=== PATIENT | male | born 1960 | race African-American/Black ===

== ENCOUNTER 2022-12-26 10:47 | Inpatient (IN) | payer OTHER ==
[2022-12-26 11:02] VITALS: BMI 31.2
[2022-12-26] MEDS ORDERED: hydrOXYzine PAMOATE 25 MG CAPSULE (FP) PO PRN (11:18)
[2022-12-26] MEDS ORDERED: LORazepam 1 MG TABLET PO PRN (11:18)
[2022-12-26] MEDS ORDERED: NALOXONE HCL (KLOXXADO) 8 MG SPRAY NS PRN (11:18)
[2022-12-26] MEDS ORDERED: ACETAMINOPHEN 325 MG TABLET (FP) PO PRN ×2 (11:18)
[2022-12-26] MEDS ORDERED: BISMUTH SUBSALICYLATE 262 MG/15 ML BTL PO PRN (11:18)
[2022-12-26] MEDS ORDERED: LOPERAMIDE HCL 2 MG CAPSULE PO PRN (11:18)
[2022-12-26] MEDS ORDERED: LORazepam 2 MG TABLET PO ONE (11:18)
[2022-12-26] MEDS ORDERED: DICYCLOMINE HCL 10 MG CAPSULE PO PRN (11:18)
[2022-12-26] MEDS ORDERED: NICOTINE 10 MG CARTRIDGE (INHALER) IH PRN (11:18)
[2022-12-26] MEDS ORDERED: POLYETHYLENE GLYCOL (HEALTHYLAX) 3350 17 GM PACKET PO PRN (11:18)
[2022-12-26] MEDS ORDERED: IBUPROFEN 400 MG TABLET (FP) PO PRN (11:18)
[2022-12-26] MEDS ORDERED: BENZOCAINE/MENTHOL (CHLORASEPTIC ) LOZENGE MM PRN (11:18)
[2022-12-26] MEDS ORDERED: MAGNESIUM HYDROX 2400MG/30ML ORAL SUSPENSION 30 ML CUP PO PRN (11:18)
[2022-12-26] MEDS ORDERED: ONDANSETRON *ODT* 4 MG TABLET SL PRN (11:18)
[2022-12-26] MEDS ORDERED: IBUPROFEN 600 MG TABLET (FP) PO PRN (11:18)
[2022-12-26] MEDS ORDERED: MAG HYDROX/AL HYDROX/SIMETH 30 ML UNIT-DOSE CUP PO PRN (11:18)
[2022-12-26] MEDS ORDERED: METHOCARBAMOL 500 MG TABLET PO PRN (11:18)
[2022-12-26] MEDS ORDERED: LORazepam 2 MG TABLET ONE (12:23)
[2022-12-26] MEDS ORDERED: PRENATAL VITAMINS W/ FOLIC ACID TABLET (FP) PO ONE (12:24)
[2022-12-26] MEDS ORDERED: NICOTINE 14 MG/24 HOURS TOPICAL PATCH TD ONE (12:25)
[2022-12-26] MEDS: PRENATAL VITAMINS W/ FOLIC ACID TABLET (FP) PO SCH (12:29)
[2022-12-26] MEDS: NICOTINE 14 MG/24 HOURS TOPICAL PATCH TD SCH (12:31)
[2022-12-26 15:21] LABS: HEMATOCRIT 44.1 % (35.4-49); HEMOGLOBIN 14.6 GM/dL (11.7-16.9); MCH 29.1 pg (25.7-33.7); MCHC 33.1 g/dl (32.0-35.9); MEAN PLT VOLUME 9.5 fl (7.5-11.1); PLATELET COUNT 209 10^3/uL (134-434); RBC 5.01 M/mm3 (4.00-5.60); RDW 14.3 % (11.9-15.9); WHITE BLOOD COUNT 6.4 K/mm3 (4.0-10.0)
[2022-12-26 15:53] LABS: CALCIUM 9.1 mg/dL (8.5-10.1)
[2022-12-26 15:54] LABS: ALBUMIN 3.6 g/dl (3.4-5.0); BLOOD UREA NITROGEN 14.2 mg/dL (7-18)
[2022-12-26 15:57] LABS: CREATININE 1.1 mg/dL (0.55-1.3)
[2022-12-26 15:59] LABS: BILIRUBIN,TOTAL 0.7 mg/dL (0.2-1); TOT PROT 6.6 g/dl (6.4-8.2)
[2022-12-26] MEDS: LORazepam 2 MG TABLET PO SCH ×2 (17:30→22:39)
[2022-12-26] MEDS: MELATONIN 5 MG TABLETS PO SCH (22:39)
[2022-12-26] MEDS: THIAMINE HCL 100 MG TABLET (FP) PO SCH (22:39)
[2022-12-27] MEDS: LORazepam 2 MG TABLET PO SCH ×4 (05:50→22:36)
[2022-12-27] MEDS: PRENATAL VITAMINS W/ FOLIC ACID TABLET (FP) PO SCH (10:30)
[2022-12-27] MEDS: NICOTINE 14 MG/24 HOURS TOPICAL PATCH TD SCH (10:30)
[2022-12-27] MEDS: MELATONIN 5 MG TABLETS PO SCH (22:36)
[2022-12-27] MEDS: THIAMINE HCL 100 MG TABLET (FP) PO SCH (22:36)
[2022-12-28] MEDS: LORazepam 1 MG TABLET PO SCH ×4 (06:22→22:19)
[2022-12-28] MEDS: PRENATAL VITAMINS W/ FOLIC ACID TABLET (FP) PO SCH (10:17)
[2022-12-28] MEDS: NICOTINE 14 MG/24 HOURS TOPICAL PATCH TD SCH (10:19)
[2022-12-28] MEDS: MELATONIN 5 MG TABLETS PO SCH (22:18)
[2022-12-28] MEDS: THIAMINE HCL 100 MG TABLET (FP) PO SCH (22:19)
[2022-12-29] MEDS ORDERED: LORazepam 0.5 MG TABLET PO PRN
[2022-12-29] MEDS: LORazepam 0.5 MG TABLET PO SCH ×4 (05:26→22:14)
[2022-12-29] MEDS: NICOTINE 14 MG/24 HOURS TOPICAL PATCH TD SCH (11:26)
[2022-12-29] MEDS: PRENATAL VITAMINS W/ FOLIC ACID TABLET (FP) PO SCH (11:26)
[2022-12-29 21:31] VITALS: RESP 18
[2022-12-29] MEDS: THIAMINE HCL 100 MG TABLET (FP) PO SCH (22:13)
[2022-12-29] MEDS: MELATONIN 5 MG TABLETS PO SCH (22:13)
[2022-12-30] MEDS ORDERED: LORazepam 0.5 MG TABLET PO ONE (05:00)
[2022-12-30 10:44] VITALS: BP 118/85; PULSE 72; TEMP 97.6
[2022-12-30] MEDS: PRENATAL VITAMINS W/ FOLIC ACID TABLET (FP) PO SCH (10:52)
[2022-12-30] MEDS: NICOTINE 14 MG/24 HOURS TOPICAL PATCH TD SCH (10:52)
== END 2022-12-30 11:22 | disposition home or self-care (01) | DRG 774 ==
LOC: YASAS 10:47 → Y6N 11:43
PROVIDERS: ADMIT Allergy & Immunology; ATTEND Surgery
PROC: HZ2ZZZZ Detoxification Services for Substance Abuse Treatment (ICD-10-PCS; principal; 2022-12-26)
DX: F10.230 Alcohol dependence with withdrawal, uncomplicated (principal); F14.20 Cocaine dependence, uncomplicated; F17.210 Nicotine dependence, cigarettes, uncomplicated; F19.282 Other psychoactive substance dependence with psychoactive substance-induced sleep disorder; F32.A Depression, unspecified; M17.11 Unilateral primary osteoarthritis, right knee; Z86.11 Personal history of tuberculosis; Z88.8 Allergy status to other drugs, medicaments and biological substances
CPT/HCPCS: 36415; 71046-TC-FY; 80053; 82140; 85027; 86593; 86780; 87811; 93005; 93010; C9803-CS; U0003; U0005

== ENCOUNTER 2024-11-04 10:22 | Inpatient (IN) | payer OTHER ==
[2024-11-04] MEDS ORDERED: IBUPROFEN 400 MG TABLET (FP) PO PRN (11:39)
[2024-11-04] MEDS ORDERED: MAGNESIUM HYDROX 2400MG/30ML ORAL SUSPENSION 30 ML CUP PO PRN (11:39)
[2024-11-04] MEDS ORDERED: NALOXONE (NARCAN) HCL 4 MG/0.1 ML SPRAY NS PRN (11:39)
[2024-11-04] MEDS ORDERED: POLYETHYLENE GLYCOL (HEALTHYLAX) 3350 17 GM PACKET PO PRN (11:39)
[2024-11-04] MEDS ORDERED: BENZONATATE 200 MG CAPSULE PO PRN (11:39)
[2024-11-04] MEDS ORDERED: DICYCLOMINE HCL 10 MG CAPSULE PO PRN (11:39)
[2024-11-04] MEDS ORDERED: LOPERAMIDE HCL 2 MG CAPSULE PO PRN (11:39)
[2024-11-04] MEDS ORDERED: BISMUTH SUBSALICYLATE 262 MG/15 ML BTL PO PRN (11:39)
[2024-11-04] MEDS ORDERED: guaiFENesin 600 MG TABLET.ER (FP) PO PRN (11:39)
[2024-11-04] MEDS ORDERED: MAG HYDROX/AL HYDROX/SIMETH 30 ML UNIT-DOSE CUP PO PRN (11:39)
[2024-11-04] MEDS ORDERED: BENZOCAINE/MENTHOL (CHLORASEPTIC ) LOZENGE MM PRN (11:39)
[2024-11-04] MEDS ORDERED: IBUPROFEN 100 MG PO SCH (11:45)
[2024-11-04 12:53] VITALS: BMI 30.9
[2024-11-04] MEDS: BACITRACIN 0.9 GM PACKET TP SCH (13:30)
[2024-11-04] MEDS: ONDANSETRON *ODT* 4 MG TABLET SL PRN (21:52)
[2024-11-04] MEDS: THIAMINE 100 MG TABLET PO SCH (21:52)
[2024-11-04] MEDS: CARVEDILOL 3.125 MG TABLET (FP) PO SCH (21:52)
[2024-11-04] MEDS: ATORVASTATIN CA 80 MG TABLET (FP) PO SCH (21:52)
[2024-11-04] MEDS: DULoxetine HCL 20 MG CAPSULE.DR PO SCH (22:23)
[2024-11-04] MEDS: MELATONIN 5 MG TABLETS PO SCH (22:24)
[2024-11-05] MEDS ORDERED: LORazepam 1 MG TABLET PO PRN (08:52)
[2024-11-05] MEDS: FOLIC ACID 1 MG TABLET (FP) PO SCH (09:37)
[2024-11-05] MEDS: PRENATAL VITAMINS W/ FOLIC ACID TABLET (FP) PO SCH (09:37)
[2024-11-05] MEDS: LOSARTAN POTASSIUM 25 MG TABLET PO SCH (09:37)
[2024-11-05] MEDS: EZETIMIBE 10 MG TABLET (FP) PO SCH (09:37)
[2024-11-05] MEDS: ASPIRIN 81 MG CHEWABLE TABLETS PO SCH (09:37)
[2024-11-05] MEDS: NALTREXONE HCL 50 MG TABLET PO SCH (09:38)
[2024-11-05] MEDS ORDERED: PATIENT'S OWN MEDICATION (NON-FORMULARY) (Iron,Carb/Vit C/Vit B12/Folic [Iron 100 Plus Tab PO SCH (10:00)
[2024-11-05] MEDS: LORazepam 2 MG TABLET PO SCH (10:26)
[2024-11-05 11:33] LABS: HEMATOCRIT 39.2 % (35.4-49); HEMOGLOBIN 12.7 GM/dL (11.7-16.9); MCH 28.7 pg (25.7-33.7); MCHC 32.3 g/dl (32.0-35.9); MEAN CELL VOLUME 88.9 fl (80-96); MEAN PLT VOLUME 9.3 fl (7.5-11.1); PLATELET COUNT 194 10^3/uL (134-434); RBC 4.41 M/mm3 (4.00-5.60); RDW 14.6 % (11.9-15.9); WHITE BLOOD COUNT 5.2 K/mm3 (4.0-10.0)
[2024-11-05 16:00] LABS: POTASSIUM 4.3 mmol/L (3.5-5.1)
[2024-11-05 16:28] LABS: ALBUMIN 3.2 g/dl (3.4-5.0); BLOOD UREA NITROGEN 19.5 mg/dL (7-18); CALCIUM 8.6 mg/dL (8.5-10.1)
[2024-11-05 16:33] LABS: BILIRUBIN,TOTAL 0.2 mg/dL (0.2-1)
[2024-11-05 16:34] LABS: TOT PROT 5.6 g/dl (6.4-8.2)
[2024-11-05] MEDS: METHOCARBAMOL 500 MG TABLET PO PRN (17:56)
[2024-11-06] MEDS: hydrOXYzine PAMOATE 25 MG CAPSULE (FP) PO PRN (09:50)
[2024-11-07] MEDS: LORazepam 1 MG TABLET PO SCH (05:50)
[2024-11-07] MEDS: IBUPROFEN 600 MG TABLET (FP) PO PRN (17:31)
[2024-11-08] MEDS ORDERED: LORazepam 0.5 MG TABLET PO PRN
[2024-11-08] MEDS: LORazepam 0.5 MG TABLET PO SCH (05:41)
[2024-11-08] MEDS: ACETAMINOPHEN 325 MG TABLET (FP) PO PRN (22:11)
[2024-11-09] MEDS: LORazepam 0.5 MG TABLET PO ONE (05:35)
[2024-11-09 08:36] VITALS: BP 135/90; PULSE 60; RESP 18; TEMP 98.6
[2024-11-09] MEDS: NALOXONE (NYS OPIOID OVERDOSE PROGRAM) 4 MG/0.1 ML SPRAY NS SCH (09:00)
== END 2024-11-09 11:02 | disposition home or self-care (01) | DRG 774 ==
LOC: YASAS 10:22 → Y6N 12:14
PROVIDERS: ADMIT Allergy & Immunology; ATTEND Allergy & Immunology
PROC: HZ2ZZZZ Detoxification Services for Substance Abuse Treatment (ICD-10-PCS; principal; 2024-11-04)
DX: F10.230 Alcohol dependence with withdrawal, uncomplicated (principal); F14.20 Cocaine dependence, uncomplicated; F17.210 Nicotine dependence, cigarettes, uncomplicated; F19.24 Other psychoactive substance dependence with psychoactive substance-induced mood disorder; F32.A Depression, unspecified; E78.5 Hyperlipidemia, unspecified; I25.10 Atherosclerotic heart disease of native coronary artery without angina pectoris; I10 Essential (primary) hypertension; I25.2 Old myocardial infarction; Z95.1 Presence of aortocoronary bypass graft; D50.9 Iron deficiency anemia, unspecified; M17.11 Unilateral primary osteoarthritis, right knee; Z86.73 Personal history of transient ischemic attack (TIA), and cerebral infarction without residual deficits; Z88.8 Allergy status to other drugs, medicaments and biological substances
CPT/HCPCS: 36415; 71046-TC-FY; 80053; 80305; 80307; 85027; 86593; 86780; 93005; 93010; Q0162

== ENCOUNTER 2024-12-31 09:47 | Inpatient (IN) | payer OTHER ==
[2024-12-31 10:20] VITALS: BMI 31.6
[2024-12-31] MEDS ORDERED: LORazepam 1 MG TABLET PO PRN (11:09)
[2024-12-31] MEDS ORDERED: ONDANSETRON *ODT* 4 MG TABLET SL PRN (11:09)
[2024-12-31] MEDS ORDERED: MAG HYDROX/AL HYDROX/SIMETH 30 ML UNIT-DOSE CUP PO PRN (11:09)
[2024-12-31] MEDS ORDERED: DICYCLOMINE HCL 10 MG CAPSULE PO PRN (11:09)
[2024-12-31] MEDS ORDERED: LOPERAMIDE HCL 2 MG CAPSULE PO PRN (11:09)
[2024-12-31] MEDS ORDERED: IBUPROFEN 400 MG TABLET (FP) PO PRN (11:09)
[2024-12-31] MEDS ORDERED: MAGNESIUM HYDROX 2400MG/30ML ORAL SUSPENSION 30 ML CUP PO PRN (11:09)
[2024-12-31] MEDS ORDERED: BISMUTH SUBSALICYLATE 262 MG/15 ML BTL PO PRN (11:09)
[2024-12-31] MEDS ORDERED: BENZOCAINE/MENTHOL (CHLORASEPTIC ) LOZENGE MM PRN (11:09)
[2024-12-31] MEDS ORDERED: NALOXONE (NARCAN) HCL 4 MG/0.1 ML SPRAY NS PRN (11:09)
[2024-12-31] MEDS ORDERED: BENZONATATE 200 MG CAPSULE PO PRN (11:09)
[2024-12-31] MEDS ORDERED: POLYETHYLENE GLYCOL (HEALTHYLAX) 3350 17 GM PACKET PO PRN (11:09)
[2024-12-31] MEDS ORDERED: guaiFENesin 600 MG TABLET.ER (FP) PO PRN (11:09)
[2024-12-31] MEDS: NICOTINE 21 MG/24 HOURS TOPICAL PATCH TD SCH (11:59)
[2024-12-31] MEDS: PRENATAL VITAMINS W/ FOLIC ACID TABLET (FP) PO SCH (11:59)
[2024-12-31] MEDS: IBUPROFEN 600 MG TABLET (FP) PO PRN (12:00)
[2024-12-31] MEDS: LORazepam 2 MG TABLET PO SCH (17:52)
[2024-12-31] MEDS: ATORVASTATIN CA 80 MG TABLET (FP) PO SCH (22:17)
[2024-12-31] MEDS: THIAMINE 100 MG TABLET PO SCH (22:17)
[2024-12-31] MEDS: CARVEDILOL 3.125 MG TABLET (FP) PO SCH (22:17)
[2024-12-31] MEDS: MELATONIN 5 MG TABLETS PO SCH (22:18)
[2024-12-31] MEDS: ACETAMINOPHEN 325 MG TABLET (FP) PO PRN (22:21)
[2025-01-01] MEDS ORDERED: P-EPHED 60MG/TRIPROLIDI 2.5MG TABLET PO PRN (09:30)
[2025-01-01 09:35] LABS: HEMOGLOBIN 13.5 GM/dL (11.7-16.9); MCH 29.8 pg (25.7-33.7); MCHC 33.7 g/dl (32.0-35.9); MEAN CELL VOLUME 88.4 fl (80-96); MEAN PLT VOLUME 9.4 fl (7.5-11.1); PLATELET COUNT 151 10^3/uL (134-434); RBC 4.53 M/mm3 (4.00-5.60); RDW 14.1 % (11.9-15.9); WHITE BLOOD COUNT 3.9 K/mm3 (4.0-10.0)
[2025-01-01 09:38] LABS: POTASSIUM 4.3 mmol/L (3.5-5.1)
[2025-01-01 09:59] LABS: CALCIUM 8.3 mg/dL (8.5-10.1)
[2025-01-01 10:00] LABS: BLOOD UREA NITROGEN 14.6 mg/dL (7-18)
[2025-01-01 10:03] LABS: CREATININE 0.8 mg/dL (0.55-1.3)
[2025-01-01 10:04] LABS: BILIRUBIN,TOTAL 0.3 mg/dL (0.2-1); TOT PROT 5.7 g/dl (6.4-8.2)
[2025-01-01] MEDS: NALTREXONE HCL 50 MG TABLET PO SCH (10:24)
[2025-01-01] MEDS: LOSARTAN POTASSIUM 25 MG TABLET PO SCH (10:24)
[2025-01-01] MEDS: ASPIRIN 81 MG CHEWABLE TABLETS PO SCH (10:24)
[2025-01-01] MEDS: EZETIMIBE 10 MG TABLET (FP) PO SCH (10:25)
[2025-01-01] MEDS: METHYL SALICYLATE/MENTHOL 30 GM TUBE TP SCH (10:53)
[2025-01-01] MEDS: FLU VACCINE (FLULAVAL) PF 45 MCG/0.5 ML SYRINGE 2024-2025 IM ONE (12:58)
[2025-01-01] MEDS: METHOCARBAMOL 500 MG TABLET PO PRN (22:25)
[2025-01-02] MEDS: LORazepam 1 MG TABLET PO SCH (05:47)
[2025-01-02] MEDS: hydrOXYzine PAMOATE 25 MG CAPSULE (FP) PO PRN (17:07)
[2025-01-03] MEDS ORDERED: LORazepam 0.5 MG TABLET PO PRN
[2025-01-03] MEDS: LORazepam 0.5 MG TABLET PO SCH (05:53)
[2025-01-03] MEDS: PNEUMOC 20-VAL CONJ-DIP CRM/PF 0.5 ML SYRINGE IM ONE (13:14)
[2025-01-04] MEDS: LORazepam 0.5 MG TABLET PO ONE (05:34)
[2025-01-04 06:39] VITALS: PULSE 60; RESP 16
[2025-01-04 09:42] VITALS: BP 122/69; TEMP 97.8
== END 2025-01-04 12:00 | disposition other institution (70) | DRG 774 ==
LOC: YASAS 09:47 → Y3N 11:52
PROVIDERS: ADMIT Allergy & Immunology; ATTEND Allergy & Immunology
PROC: HZ2ZZZZ Detoxification Services for Substance Abuse Treatment (ICD-10-PCS; principal; 2024-12-31)
DX: F10.230 Alcohol dependence with withdrawal, uncomplicated (principal); F14.20 Cocaine dependence, uncomplicated; F17.210 Nicotine dependence, cigarettes, uncomplicated; I25.10 Atherosclerotic heart disease of native coronary artery without angina pectoris; I10 Essential (primary) hypertension; I25.2 Old myocardial infarction; Z95.5 Presence of coronary angioplasty implant and graft; E78.5 Hyperlipidemia, unspecified; D50.9 Iron deficiency anemia, unspecified; M17.11 Unilateral primary osteoarthritis, right knee; Z86.73 Personal history of transient ischemic attack (TIA), and cerebral infarction without residual deficits; Z99.89 Dependence on other enabling machines and devices
CPT/HCPCS: 36415; 80053; 80305; 80307; 85027; 86593; 86780; 87811; 90656; 93005; 93010; G0008

== ENCOUNTER 2025-01-04 12:38 | Inpatient (IN) | payer OTHER ==
[2025-01-04] MEDS ORDERED: guaiFENesin 600 MG TABLET.ER (FP) PO PRN (14:03)
[2025-01-04] MEDS ORDERED: BENZONATATE 200 MG CAPSULE PO PRN (14:03)
[2025-01-04] MEDS ORDERED: NALOXONE HCL 0.4 MG/ML VIAL IVPUSH PRN (14:03)
[2025-01-04] MEDS ORDERED: IBUPROFEN 400 MG TABLET (FP) PO PRN (14:03)
[2025-01-04] MEDS ORDERED: NICOTINE POLACRILEX 2 MG LOZENGE BC PRN (14:03)
[2025-01-04] MEDS ORDERED: MAGNESIUM HYDROX 2400MG/30ML ORAL SUSPENSION 30 ML CUP PO PRN (14:03)
[2025-01-04] MEDS ORDERED: MAG HYDROX/AL HYDROX/SIMETH 30 ML UNIT-DOSE CUP PO PRN (14:03)
[2025-01-04] MEDS ORDERED: BENZOCAINE/MENTHOL (CHLORASEPTIC ) LOZENGE MM PRN (14:03)
[2025-01-04] MEDS ORDERED: NALOXONE (NARCAN) HCL 4 MG/0.1 ML SPRAY NS PRN (14:03)
[2025-01-04] MEDS ORDERED: LOPERAMIDE HCL 2 MG CAPSULE PO PRN (14:03)
[2025-01-04] MEDS ORDERED: POLYETHYLENE GLYCOL (HEALTHYLAX) 3350 17 GM PACKET PO PRN (14:03)
[2025-01-04] MEDS ORDERED: NICOTINE POLACRILEX 2 MG GUM BUC PRN (14:03)
[2025-01-04] MEDS: ATORVASTATIN CA 80 MG TABLET (FP) PO SCH (22:19)
[2025-01-04] MEDS: CARVEDILOL 3.125 MG TABLET (FP) PO SCH (22:19)
[2025-01-04] MEDS: THIAMINE 100 MG TABLET PO SCH (22:19)
[2025-01-04] MEDS: MELATONIN 5 MG TABLETS PO SCH (22:19)
[2025-01-04] MEDS: ACETAMINOPHEN 325 MG TABLET (FP) PO PRN (22:20)
[2025-01-05] MEDS: EZETIMIBE 10 MG TABLET (FP) PO SCH (09:26)
[2025-01-05] MEDS: LOSARTAN POTASSIUM 25 MG TABLET PO SCH (09:26)
[2025-01-05] MEDS: ASPIRIN 81 MG CHEWABLE TABLETS PO SCH (09:26)
[2025-01-05] MEDS: PRENATAL VITAMINS W/ FOLIC ACID TABLET (FP) PO SCH (09:26)
[2025-01-05] MEDS: PNEUMOC 20-VAL CONJ-DIP CRM/PF 0.5 ML SYRINGE IM ONE (12:55)
[2025-01-05] MEDS ORDERED: ATORVASTATIN CA 40 MG TABLET (FP) ONE (21:26)
[2025-01-05] MEDS: METHOCARBAMOL 500 MG TABLET PO PRN (21:27)
[2025-01-06] MEDS ORDERED: ATORVASTATIN CA 40 MG TABLET (FP) ONE (21:14)
[2025-01-07] MEDS: NALTREXONE HCL 50 MG TABLET PO ONE (14:28)
[2025-01-07] MEDS: LIDOCAINE 5% TOPICAL PATCH TP SCH (14:28)
[2025-01-07] MEDS ORDERED: ATORVASTATIN CA 40 MG TABLET (FP) ONE (20:35)
[2025-01-07] MEDS: LIDOCAINE 2.5%/PRILOCAINE 2.5% 30 GRAM TUBE TP PRN (21:33)
[2025-01-07] MEDS: LIDOCAINE PATCH REMOVAL MC SCH (21:34)
[2025-01-07] MEDS: BACLOFEN 10 MG TABLET (FP) PO SCH (21:34)
[2025-01-08] MEDS: NALTREXONE HCL 50 MG TABLET PO SCH (09:54)
[2025-01-08] MEDS ORDERED: ATORVASTATIN CA 40 MG TABLET (FP) ONE (21:14)
[2025-01-08] MEDS: traZODone HCL 50 MG TABLET (FP) PO SCH (21:20)
[2025-01-08] MEDS: DULoxetine HCL 20 MG CAPSULE.DR PO SCH (21:20)
[2025-01-08] MEDS: IBUPROFEN 600 MG TABLET (FP) PO PRN (21:21)
[2025-01-09] MEDS ORDERED: ATORVASTATIN CA 40 MG TABLET (FP) ONE (21:22)
[2025-01-10] MEDS ORDERED: ATORVASTATIN CA 40 MG TABLET (FP) ONE (21:12)
[2025-01-11] MEDS ORDERED: ATORVASTATIN CA 40 MG TABLET (FP) ONE (21:09)
[2025-01-11] MEDS: DOCUSATE SODIUM 100 MG CAPSULE (FP) PO PRN (21:27)
[2025-01-12] MEDS ORDERED: ATORVASTATIN CA 40 MG TABLET (FP) ONE (21:11)
[2025-01-13] MEDS ORDERED: ATORVASTATIN CA 40 MG TABLET (FP) ONE (21:11)
[2025-01-14] MEDS ORDERED: ATORVASTATIN CA 40 MG TABLET (FP) ONE (21:02)
[2025-01-15] MEDS ORDERED: ATORVASTATIN CA 40 MG TABLET (FP) ONE (20:34)
[2025-01-17 22:26] VITALS: TEMP 97.5
[2025-01-18 06:14] VITALS: RESP 17
[2025-01-18 09:34] VITALS: BP 137/85; PULSE 61
== END 2025-01-18 09:55 | disposition home or self-care (01) | DRG 772 ==
LOC: YASAS 12:38 → Y3NR 12:40 → Y3W 01-05 10:35
PROVIDERS: ADMIT Psychiatry & Neurology Pain Medicine; ATTEND Psychiatry & Neurology Pain Medicine
PROC: HZ42ZZZ Group Counseling for Substance Abuse Treatment, Cognitive-Behavioral (ICD-10-PCS; principal; 2025-01-04)
DX: F10.20 Alcohol dependence, uncomplicated (principal); F14.20 Cocaine dependence, uncomplicated; F17.210 Nicotine dependence, cigarettes, uncomplicated; F19.280 Other psychoactive substance dependence with psychoactive substance-induced anxiety disorder; F19.282 Other psychoactive substance dependence with psychoactive substance-induced sleep disorder; F19.24 Other psychoactive substance dependence with psychoactive substance-induced mood disorder; F32.A Depression, unspecified; F43.21 Adjustment disorder with depressed mood; D50.9 Iron deficiency anemia, unspecified; E78.5 Hyperlipidemia, unspecified; I25.10 Atherosclerotic heart disease of native coronary artery without angina pectoris; I10 Essential (primary) hypertension; Z95.5 Presence of coronary angioplasty implant and graft; Z86.73 Personal history of transient ischemic attack (TIA), and cerebral infarction without residual deficits; Z86.11 Personal history of tuberculosis
CPT/HCPCS: 90677; G0009; J0475

== ENCOUNTER 2025-08-13 17:20 | Inpatient (IN) | payer OTHER ==
[2025-08-13 17:49] VITALS: BMI 29.1
[2025-08-13] MEDS ORDERED: ACETAMINOPHEN 325 MG TABLET (FP) PO PRN (17:55)
[2025-08-13] MEDS ORDERED: MAGNESIUM HYDROX 2400MG/30ML ORAL SUSPENSION 30 ML CUP PO PRN (17:55)
[2025-08-13] MEDS ORDERED: NICOTINE POLACRILEX 2 MG GUM BUC PRN (17:55)
[2025-08-13] MEDS ORDERED: IBUPROFEN 600 MG TABLET (FP) PO PRN (17:55)
[2025-08-13] MEDS ORDERED: BENZOCAINE/MENTHOL (CHLORASEPTIC ) LOZENGE MM PRN (17:55)
[2025-08-13] MEDS ORDERED: BENZONATATE 200 MG CAPSULE PO PRN (17:55)
[2025-08-13] MEDS ORDERED: NALOXONE (NARCAN) HCL 4 MG/0.1 ML SPRAY NS PRN (17:55)
[2025-08-13] MEDS ORDERED: IBUPROFEN 400 MG TABLET (FP) PO PRN (17:55)
[2025-08-13] MEDS ORDERED: LOPERAMIDE HCL 2 MG CAPSULE PO PRN (17:55)
[2025-08-13] MEDS ORDERED: NICOTINE POLACRILEX 2 MG LOZENGE BC PRN (17:55)
[2025-08-13] MEDS ORDERED: DICYCLOMINE HCL 10 MG CAPSULE PO PRN (17:55)
[2025-08-13] MEDS ORDERED: BISMUTH SUBSALICYLATE 524 MG/30 ML PO PRN (17:55)
[2025-08-13] MEDS ORDERED: POLYETHYLENE GLYCOL (HEALTHYLAX) 3350 17 GM PACKET PO PRN (17:55)
[2025-08-13] MEDS ORDERED: guaiFENesin 600 MG TABLET.ER (FP) PO PRN (17:55)
[2025-08-13] MEDS: THIAMINE 100 MG TABLET PO SCH (22:06)
[2025-08-13] MEDS: MELATONIN 5 MG TABLETS PO SCH (22:06)
[2025-08-13] MEDS: hydrOXYzine PAMOATE 25 MG CAPSULE (FP) PO PRN (22:06)
[2025-08-13] MEDS: METHOCARBAMOL 500 MG TABLET PO PRN (22:06)
[2025-08-14] MEDS: MAG HYDROX/AL HYDROX/SIMETH 30 ML UNIT-DOSE CUP PO PRN (06:38)
[2025-08-14 09:34] LABS: MCHC 31.7 g/dl (32.3-36.5); MEAN CELL VOLUME 88.9 fl (79.0-92.2); MEAN PLT VOLUME 11.7 fl (9.4-12.4); RDW 13.5 % (12.2-16.4)
[2025-08-14 09:39] LABS: GLUCOSE,RANDOM 110 mg/dL (74-106); TOT PROT 5.8 g/dl (6.4-8.2)
[2025-08-14 09:40] LABS: CO2 23 mmol/L (21-32)
[2025-08-14 09:42] LABS: ALK PHOS 66 U/L (40-150)
[2025-08-14 09:45] LABS: CREATININE 0.85 mg/dL (0.55-1.3); SGOT/AST 23 U/L (5-34); SGPT/ALT 21 U/L (0-55)
[2025-08-14] MEDS: FOLIC ACID 1 MG TABLET (FP) PO SCH (09:57)
[2025-08-14] MEDS: PRENATAL VITAMINS W/ FOLIC ACID TABLET (FP) PO SCH (09:57)
[2025-08-14] MEDS: LOSARTAN POTASSIUM 25 MG TABLET PO SCH (09:57)
[2025-08-14] MEDS: ASPIRIN 81 MG CHEWABLE TABLETS PO SCH (09:57)
[2025-08-14] MEDS: CARVEDILOL 3.125 MG TABLET (FP) PO SCH (09:57)
[2025-08-14 10:02] LABS: SYPHILIS W/ RPR CONF REACTIVE (NONREACTIVE)
[2025-08-14 10:46] LABS: HIV INTERPRETATION NEGATIVE (NEGATIVE)
[2025-08-14] MEDS: CALCIUM 500MG/VIT-D 200 UNITS COMBO TABLET (FP) PO SCH (12:39)
[2025-08-14 14:18] LABS: RPR REFLEX REACTIVE 1:1 (NONREACTIVE)
[2025-08-14] MEDS: ATORVASTATIN CA 80 MG TABLET (FP) PO SCH (22:06)
[2025-08-14] MEDS: EZETIMIBE 10 MG TABLET (FP) PO SCH (22:06)
[2025-08-15] MEDS: NALTREXONE HCL 50 MG TABLET PO SCH (14:20)
[2025-08-16] MEDS: ONDANSETRON *ODT* 4 MG TABLET SL PRN (17:16)
[2025-08-17 08:40] VITALS: BP 117/86; PULSE 64; RESP 20; TEMP 97.7
== END 2025-08-17 11:24 | disposition home or self-care (01) | DRG 775 ==
LOC: YASAS 17:20 → Y6N 20:33 → Y3N 08-16 14:45
PROVIDERS: ADMIT Neuromusculoskeletal Medicine & OMM; ATTEND Student in an Organized Health Care Education/Training Program
PROC: HZ2ZZZZ Detoxification Services for Substance Abuse Treatment (ICD-10-PCS; principal; 2025-08-13)
DX: F10.230 Alcohol dependence with withdrawal, uncomplicated (principal); F17.210 Nicotine dependence, cigarettes, uncomplicated; F19.282 Other psychoactive substance dependence with psychoactive substance-induced sleep disorder; F32.A Depression, unspecified; E78.2 Mixed hyperlipidemia; I25.10 Atherosclerotic heart disease of native coronary artery without angina pectoris; I11.0 Hypertensive heart disease with heart failure; I50.9 Heart failure, unspecified; I25.2 Old myocardial infarction; Z95.5 Presence of coronary angioplasty implant and graft; D50.9 Iron deficiency anemia, unspecified; M17.11 Unilateral primary osteoarthritis, right knee; Z86.73 Personal history of transient ischemic attack (TIA), and cerebral infarction without residual deficits; Z86.19 Personal history of other infectious and parasitic diseases
CPT/HCPCS: 36415; 80053; 80307; 85027; 86593; 86780; 87389; 93005; 93010; Q0162